=== PATIENT | female | born 1980 | race Caucasian/White ===

== ENCOUNTER 2018-03-04 09:36 | Emergency (ER) | payer OTHER ==
[~2018-03-04] VITALS: Ht 167.6 cm; Wt 54.4 kg
[~2018-03-04 09:36] MED LIST: HYDROCODONE-AP1 EAC6 PO; XANAX 0.5 MG0.5 MG PO
[2018-03-04] MEDS ORDERED: NEURONTIN600 MG PO (09:45)
[2018-03-04] MEDS ORDERED: PERCOCET PO (09:45)
[2018-03-04] MEDS ORDERED: PAXIL10 MG PO (09:45)
[2018-03-04] MEDS ORDERED: ACCUNEB SO1.25 MG/1 INH (09:46)
[2018-03-04] MEDS ORDERED: BUSPIRONE HCL10 MG PO (09:46)
[2018-03-04] MEDS ORDERED: ADVAIR HFA 230M12 GM INH (09:46)
[2018-03-04 12:10] VITALS: BP 107/64
[2018-03-04] MEDS ORDERED: BUTALB-APAP-CA1 EACH PO (12:14)
== END 2018-03-04 12:21 | disposition home or self-care (01) ==
LOC: ER 09:36
DX: G44.209 Tension-type headache, unspecified, not intractable (principal); M54.5 Low back pain; G89.29 Other chronic pain; R11.2 Nausea with vomiting, unspecified; F17.210 Nicotine dependence, cigarettes, uncomplicated; Z88.6 Allergy status to analgesic agent; J45.909 Unspecified asthma, uncomplicated